=== PATIENT | female | born 1985 | race African-American/Black ===

== ENCOUNTER 2016-04-09 14:00 | Outpatient (RCR) | payer BC | END 2016-04-15 | disposition home or self-care (01) | PROVIDERS: ATTEND Otolaryngology | DX: F44.4 Conversion disorder with motor symptom or deficit (principal) ==

== ENCOUNTER 2016-05-01 14:00 | Outpatient (RCR) | payer BC ==
--- OUTSIDE RECORDS SUMMARY | 2016-04-20 14:17 | XMS REPORT | Continuity of Care Document ---
Author Author [facility] Organization [facility] Address Unknown Phone Unavailable Care Team Providers Care Health And Safety Coordinator Name Role Phone AliciaDoron PCP [phone] Source Comments Some departments are not documenting in the electronic medical record. If you do not see the information that you expected, contact Release of Information in the Health Information Management department at [phone] for further assistance in locating additional records.[facility] Active Allergies and Adverse Reactions Allergen Noted Date Severity Reactions Comments Tramadol 03/29/2016 Medium HIVES Current Medications Prescription Sig. Disp. Refills Start End Date Status Date CYCLOBENZAPRINE HCL Take by mouth twice Active (CYCLOBENZAPRINE PO) daily. traZODone (DESYREL) 100 Take 100 mg by mouth at Active mg tablet bedtime daily. LORazepam (ATIVAN) 0.5 mg Take 1 Tab by mouth every Active tablet 6 hours as needed for Nausea. ibuprofen (ADVIL; MOTRIN) Take by mouth every 6 Active 100 mg/5 mL oral hours as needed for Pain. suspension Take with food. baclofen (LIORESAL) 20 mg Take 20 mg by mouth three Active tablet times daily. 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 Clinical Otolaryngology Myah Ambriz, Oropharyngeal dysphagia Support NEYDA,AFSH[employer] (Primary Dx) 03/30/2016 Hospital Radiology Daija Constantino MD Encounter 03/29/2016 [facility] Kit Claros MD Encounter 03/29/2016 Nurse Only Erika Grimm MD 03/29/2016 Surgery Erika Grimm MD ACID TEST ESOPHAGEAL with impedance 03/27/2016 Telephone Beth Tucker RN Pre-Procedure Instructions 03/26/2016 Telephone Otolaryngology Daija Constantino MD Prior Authorization 03/12/2016 Telephone OtolaryngologDaija Vee MD Imaging - Requesting thyroid u/s 03/12/2016 Orders Only Otolaryngology Daija Constantino MD Muscle tension dysphonia (Primary Dx); Neck pain 02/02/2016 Telephone Otolaryngology Daija Constantino MD Appointment - COORDINATED APPOINTMENTS FOR 24 HOUR IMPENDANCE TESTING AND VIDEO SWALLOW AND FOLLOW UP WITH DR CONSTANTINO 02/01/2016 Orders Only Otolaryngology Daija Constantino MD Dysphonia ( Primary Dx); Oropharyngeal dysphagia Social History Tobacco Use Types Packs/Day Years Used Date Never Smoker Smokeless Tobacco: Never Used Alcohol Use Drinks/Week oz/Week Comments No Last Filed Vital Signs Vital Sign Reading Time Taken Blood Pressure 147/93 03/30/2016 2:08 PM [facility] Pulse 70 03/30/2016 2:08 PM [facility] Temperature - - Respiratory Rate - - Height 1.753 m (5' 9") 03/30/2016 2:08 PM [facility] Weight 69.128 kg (152 lb 6.4 oz) 03/30/2016 2:08 PM [facility] Body Mass Index 22.5 03/30/2016 2:08 PM [facility] Oxygen Saturation - - Plan of Care Health Maintenance Due Date Last Done Comments Physical (Comprehensive) 11/21/1991 Exam Pertussis Vaccine 11/21/1995 Tetanus Vaccine 2001 Cervical Cancer Screening 2005 Influenza Vaccine 10/12/2016 Procedures from Last 3 Months Procedure Name Priority Date/Time Associated Diagnosis Comments PROCEDURE RECORD-SCAN 04/04/2016 Results for this 12:18 PM [facility] procedure are in the results section. ACID TEST ESOPHAGEAL with 03/29/2016 Dysphonia, dysphagia impedance 7:30 AM [facility] Results from Last 3 Months PROCEDURE RECORD-SCAN (04/04/2016 12:18 PM) Narrative Ordered by an unspecified provider. SWALLOW MOTION SERIES (03/30/2016 1:28 PM) Impressions No evidence of laryngeal penetration or aspiration. Please see the separately dictated report from the Department of Speech Pathology for additional description. Approved by Clarisa Prather M.D. on 04/06/2016 9:31 AM By my electronic signature, I attest that I have personally reviewed the images for this examination and formulated the interpretations and opinions expressed in this report Finalized by Siva John M.D. on 04/06/2016 2:34 PM. Dictated by Clarisa Prather M.D. on 04/06/2016 9:10 AM. Narrative Swallow motion series. Clinical History:30-year-old female with oropharyngeal dysphagia Technique: The procedure was performed in conjunction with members of the department of speech pathology. Video fluoroscopy was performed during swallowing of thin and thick barium, and semisolid and solid foods mixed with barium paste. The study was recorded on videotape. The patient tolerated the procedure well and left the department in stable condition. Total fluoroscopy time was 114 seconds. Findings: The patient is able to swallow on command. The oral phase of swallowing is unremarkable with normal bolus formation and transfer. No early spillover occurs. There is no delay in initiation of the pharyngeal phase. Pharyngeal peristalsis is normal without significant residual in the valleculae or pyriform sinuses. Airway protection is normal with normal laryngeal elevation and epiglottic movement. Cricopharyngeal function is normal. No aspiration or laryngeal penetration occurred during the exam. Procedure Note Interface, Radiant Results - SatApr 06, 2016 2:37 PM [facility] Swallow motion series. Clinical History: 30-year-old female with oropharyngeal dysphagia Technique: The procedure was performed in conjunction with members of the department of speech pathology. Video fluoroscopy was performed during swallowing of thin and thick barium, and semisolid and solid foods mixed with barium paste. The study was recorded on videotape. The patient tolerated the procedure well and left the department in stable condition. Total fluoroscopy time was 114 seconds. Findings: The patient is able to swallow on command. The oral phase of swallowing is unremarkable with normal bolus formation and transfer. No early spillover occurs. There is no delay in initiation of the pharyngeal phase. Pharyngeal peristalsis is normal without significant residual in the valleculae or pyriform sinuses. Airway protection is normal with normal laryngeal elevation and epiglottic movement. Cricopharyngeal function is normal. No aspiration or laryngeal penetration occurred during the exam. IMPRESSION No evidence of laryngeal penetration or aspiration. Please see the separately dictated report from the Department of Speech Pathology for additional description. Approved by Clarisa Prather M.D. on 04/06/2016 9:31 AM By my electronic signature, I attest that I have personally reviewed the images for this examination and formulated the interpretations and opinions expressed in this report Finalized by Siva John M.D. on 04/06/2016 2:34 PM. Dictated by Clarisa Prather M.D. on 04/06/2016 9:10 AM. CHEST SINGLE VIEW (03/29/2016 9:04 AM) Impressions No acute cardiopulmonary abnormality. Approved by Serafin Rubio M.D. on 03/29/2016 11:25 AM By my electronic signature, I attest that I have personally reviewed the images for this examination and formulated the interpretations and opinions expressed in this report Finalized by Zhou Pino M.D. on 03/29/2016 11:47 AM. Dictated by Serafin Rubio M.D. on 03/29/2016 11:24 AM. Narrative CHEST SINGLE VIEW Clinical Indication: Female, 30 years old.Verify pH probe placement. Comparison: No prior studies are available for comparison. Findings: An esophageal pH probe is noted. Heart size and pulmonary vasculature are within normal limits. No consolidation, pleural effusion, or pneumothorax. Partial visualization of left shoulder arthroplasty. Procedure Note Interface, Radiant Results - [facility] Mar 29, 2016 11:50 AM [facility] CHEST SINGLE VIEW Clinical Indication: Female, 30 years old. Verify pH probe placement. Comparison: No prior studies are available for comparison. Findings: An esophageal pH probe is noted. Heart size and pulmonary vasculature are within normal limits. No consolidation, pleural effusion, or pneumothorax. Partial visualization of left shoulder arthroplasty. IMPRESSION No acute cardiopulmonary abnormality. Approved by Serafin Rubio M.D. on 03/29/2016 11:25 AM By my electronic signature, I attest that I have personally reviewed the images for this examination and formulated the interpretations and opinions expressed in this report Finalized by Zhou Pino M.D. on 03/29/2016 11:47 AM. Dictated by Serafin Rubio M.D. on 03/29/2016 11:24 AM.
== END 2016-05-01 15:27 | disposition home or self-care (01) ==
PROVIDERS: ATTEND Otolaryngology
DX: F44.4 Conversion disorder with motor symptom or deficit (principal)

== ENCOUNTER 2016-06-12 13:25 | Outpatient (RCR) | payer BC | END 2016-06-22 13:08 | disposition home or self-care (01) | PROVIDERS: ATTEND Otolaryngology | DX: J38.7 Other diseases of larynx (principal) ==